=== PATIENT | male | born 1955 | race African-American/Black ===

== ENCOUNTER 2020-07-22 09:42 | Inpatient (IN) | payer MEDICARE, OTHER ==
[~2020-07-22] VITALS: Ht 175.3 cm; Wt 94.8 kg
[2020-07-22] MEDS ORDERED: LEVETIRACETAM 1000MG/100ML 100 ML IV ONE (10:15)
[2020-07-22 10:28] LABS: BASOPHILS % 0.1 % (0.0-2.0); HEMATOCRIT. 36.2 % (42.0-52.0); HEMOGLOBIN. 12.3 g/dL (14.0-18.0); LYMPHOCYTES % 7.5 % (20.0-50.0); MEAN CORPUSCULAR HEMOGLOBIN 31.7 pg (28.0-32.0); MEAN CORPUSCULAR VOLUME 93.3 fL (80.0-94.0); MEAN PLATELET VOLUME 8.6 fl (7.4-10.4); MONOCYTES % 2.6 % (2.0-8.0); NEUTROPHILS % 89.8 % (40.0-76.0); PLATELET 200 x1000/uL (130-400); RED BLOOD CELL COUNT 3.87 mill/uL (4.7-6.1); RED CELL DISTRIBUTION WIDTH 13.8 % (11.6-14.6)
[2020-07-22 10:36] LABS: CHLORIDE 111 mEq/L (98-107)
[2020-07-22 10:42] LABS: ETHANOL BLOOD < 10 mg/dL
[2020-07-22 10:48] LABS: CLARITY URINE CLEAR (CLEAR); COLOR URINE YELLOW (YELLOW); KETONES URINE TRACE (NEGATIVE); LEUKOCYTE ESTERASE URINE NEGATIVE (NEGATIVE); NITRITE URINE NEGATIVE (NEGATIVE); OCCULT BLOOD URINE 1+ (NEGATIVE); PH URINE 6.5 (4.5-8.0); PROTEIN URINE 2+ (NEGATIVE); SPECIFIC GRAVITY URINE 1.015 (1.005-1.030); UROBILINOGEN URINE 0.2 E.U./dL (0.2-1.0)
[2020-07-22 10:59] LABS: *AMPHETAMINES SCREEN URINE NEGATIVE (NEGATIVE); *BARBITURATES SCREEN URINE NEGATIVE (NEGATIVE)
[2020-07-22 11:00] LABS: *BENZODIAZEPINES SCREEN URINE NEGATIVE (NEGATIVE); *COCAINE SCREEN URINE NEGATIVE (NEGATIVE); METHADONE URINE SCREEN NEGATIVE (NEGATIVE); OPIATES URINE SCREEN NEGATIVE (NEGATIVE)
[2020-07-22 11:01] LABS: CANNABINOID URINE SCREEN NEGATIVE (NEGATIVE); PHENCYCLIDINE URINE SCREEN NEGATIVE (NEGATIVE)
[2020-07-22 15:30] VITALS: BP 121/77
[2020-07-22] MEDS ORDERED: GUAIFENESIN 200MG/10ML SUGAR FREE UDC PO PRN (16:00)
[2020-07-22] MEDS ORDERED: NA PHOS,M-B/NA PHOS,DI-BA ENEMA 118ML PR PRN (16:00)
[2020-07-22] MEDS ORDERED: MAGNESIUM/ALUMINUM HYDROXIDE/SIMETHICONE 30ML UDC PO PRN (16:00)
[2020-07-22] MEDS ORDERED: MORPHINE SULFATE 2 MG/ML CPJ (NOT FOR IM USE) IV PRN (16:00)
[2020-07-22] MEDS ORDERED: DIPHENHYDRAMINE 50MG/ML VIAL IV PRN (16:00)
[2020-07-22] MEDS ORDERED: HYDROCODONE/ACETAMINOPHEN 10/325MG TABLET PO PRN (16:00)
[2020-07-22] MEDS ORDERED: DEXTROSE 50% WATER 50ML SYRINGE IV PRN (16:00)
[2020-07-22] MEDS ORDERED: LORAZEPAM 2MG/ML CPJ IV PRN (16:00)
[2020-07-22] MEDS ORDERED: IPRATROPIUM/ALBUTEROL 0.5-3(2.5)MG/3ML NEB NEB PRN (16:00)
[2020-07-22] MEDS ORDERED: ONDANSETRON HCL 4MG/2ML INJ IV PRN (16:00)
[2020-07-22] MEDS ORDERED: CLONIDINE 0.1MG TABLET PO PRN (16:00)
[2020-07-22] MEDS ORDERED: DOCUSATE SODIUM 100MG CAPSULE PO PRN (16:00)
[2020-07-22] MEDS ORDERED: ACETAMINOPHEN 325MG TABLET PO PRN (16:00)
[2020-07-22] MEDS: BLOOD SUGAR DIAGNOSTIC STRIP TEST SCH ×2 (16:45→21:06)
[2020-07-22] MEDS ORDERED: AMLO10TA80 MT (16:54)
[2020-07-22] MEDS ORDERED: ESCI10TA61 MT (16:54)
[2020-07-22] MEDS ORDERED: HALO5TAB PO (16:54)
[2020-07-22] MEDS ORDERED: LAMO200T50 PO (16:54)
[2020-07-22] MEDS ORDERED: LISI-186 MT (16:54)
[2020-07-22] MEDS ORDERED: LEVA0.6320 NEB (16:54)
[2020-07-22] MEDS ORDERED: FAMO20TA8 MT (16:54)
[2020-07-22] MEDS ORDERED: LEVE10006 MT (16:54)
[2020-07-22] MEDS ORDERED: FLUT15.844 BOTHNSTRLS (16:54)
[2020-07-22] MEDS ORDERED: OLAN10TA19 PO (16:54)
[2020-07-22] MEDS ORDERED: IPRA3AMP9 HHN (16:54)
[2020-07-22] MEDS ORDERED: TOPI25TA48 MT (16:54)
[2020-07-22] MEDS: INSULIN LISPRO 100 UNITS/ML SUBCUT SCH ×2 (17:15→21:00)
[2020-07-22] MEDS: ENOXAPARIN 40MG/0.4ML SYR SUBCUT SCH (18:14)
[2020-07-22 20:00] VITALS: BP 125/80
[2020-07-22] MEDS: OLANZAPINE 10MG TABLET PO SCH (20:53)
[2020-07-22] MEDS: LAMOTRIGINE 100MG TABLET PO SCH (20:53)
[2020-07-22] MEDS: LEVETIRACETAM 500MG TABLET PO SCH (20:54)
[2020-07-22] MEDS ORDERED: LEVETIRACETAM 500MG TABLET PO SCH (21:00)
[2020-07-22] MEDS: SODIUM CHLORIDE 0.9% INJ 3ML FLUSH IVF SCH (21:07)
[2020-07-23] VITALS (9 sets, daily range): BP systolic 80–136; BP diastolic 45–80
[2020-07-23 00:27] LABS: CREATINE KINASE MB FRACTION 4.7 ng/mL (0.5-3.6)
[2020-07-23] MEDS: BLOOD SUGAR DIAGNOSTIC STRIP TEST SCH ×4 (06:34→20:37)
[2020-07-23] MEDS: SODIUM CHLORIDE 0.9% INJ 3ML FLUSH IVF SCH ×3 (06:34→22:09)
[2020-07-23] MEDS: INSULIN LISPRO 100 UNITS/ML SUBCUT SCH ×4 (06:35→20:38)
[2020-07-23 07:02] LABS: BASOPHILS % 0.5 % (0.0-2.0); EOSINOPHILS % 0.8 % (0.0-5.0); HEMATOCRIT. 34.9 % (42.0-52.0); HEMOGLOBIN. 11.8 g/dL (14.0-18.0); LYMPHOCYTES % 29.4 % (20.0-50.0); MEAN CORPUSCULAR HEMOGLOBIN 31.5 pg (28.0-32.0); MEAN PLATELET VOLUME 8.6 fl (7.4-10.4); MONOCYTES % 7.4 % (2.0-8.0); NEUTROPHILS % 61.9 % (40.0-76.0); PLATELET 198 x1000/uL (130-400); RED BLOOD CELL COUNT 3.75 mill/uL (4.7-6.1)
[2020-07-23 07:13] LABS: CHLORIDE 109 mEq/L (98-107)
[2020-07-23 07:28] LABS: LDL CHOLESTEROL 105 mg/dL (5-100); T4 FREE 0.91 ng/dL (0.76-1.46)
[2020-07-23 07:29] LABS: CREATINE KINASE MB FRACTION 4.2 ng/mL (0.5-3.6)
[2020-07-23 07:30] LABS: HDL CHOLESTEROL 60 mg/dL (40-59)
[2020-07-23 07:43] LABS: CREATINE KINASE 1523 IU/L (39-308)
[2020-07-23] MEDS: LEVETIRACETAM 500MG TABLET PO SCH ×2 (09:13→20:40)
[2020-07-23] MEDS: LAMOTRIGINE 100MG TABLET PO SCH ×2 (09:13→20:40)
[2020-07-23] MEDS: OLANZAPINE 10MG TABLET PO SCH ×2 (09:13→17:29)
[2020-07-23] MEDS ORDERED: POTASSIUM CHLORIDE 20MEQ TABLET SR PO SCH (11:00)
[2020-07-23] MEDS ORDERED: SODIUM CHLORIDE 0.9% 500 ML IV ONE (11:45)
[2020-07-23] MEDS: ENOXAPARIN 40MG/0.4ML SYR SUBCUT SCH (17:29)
[2020-07-24] VITALS: BP 112/70
[2020-07-24 04:00] VITALS: BP 116/85
[2020-07-24] MEDS: SODIUM CHLORIDE 0.9% INJ 3ML FLUSH IVF SCH (05:22)
[2020-07-24] MEDS: BLOOD SUGAR DIAGNOSTIC STRIP TEST SCH (06:59)
[2020-07-24] MEDS: INSULIN LISPRO 100 UNITS/ML SUBCUT SCH (07:00)
[2020-07-24 08:00] VITALS: BP 126/88
[2020-07-24] MEDS: LEVETIRACETAM 500MG TABLET PO SCH (08:47)
[2020-07-24] MEDS: OLANZAPINE 10MG TABLET PO SCH (08:47)
[2020-07-24] MEDS: LAMOTRIGINE 100MG TABLET PO SCH (08:47)
[2020-07-24 10:30] VITALS: BP 126/88
== END 2020-07-24 12:00 | DRG 53 ==
LOC: ER 09:51 → 5WST 13:15 → ENRESERV 14:08
PROVIDERS: ADMIT Internal Medicine; ATTEND Internal Medicine
DX: G40.919 Epilepsy, unspecified, intractable, without status epilepticus (principal); E11.9 Type 2 diabetes mellitus without complications; E78.5 Hyperlipidemia, unspecified; F03.90 Unspecified dementia, unspecified severity, without behavioral disturbance, psychotic disturbance, mood disturbance, and anxiety; F20.9 Schizophrenia, unspecified; F31.9 Bipolar disorder, unspecified; I11.0 Hypertensive heart disease with heart failure; I25.10 Atherosclerotic heart disease of native coronary artery without angina pectoris; I48.91 Unspecified atrial fibrillation; I50.9 Heart failure, unspecified; J44.9 Chronic obstructive pulmonary disease, unspecified; M81.0 Age-related osteoporosis without current pathological fracture; F41.9 Anxiety disorder, unspecified; M19.90 Unspecified osteoarthritis, unspecified site; Z79.899 Other long term (current) drug therapy; Z86.73 Personal history of transient ischemic attack (TIA), and cerebral infarction without residual deficits; S00.83XA Contusion of other part of head, initial encounter
CPT/HCPCS: 36415; 71045; 80053; 80061; 80305; 80320; 81003; 82550; 82553; 82962; 84439; 84443; 84484; 85025; 93005; 99285; J1650; J1953; G0480

== ENCOUNTER 2022-08-22 18:00 | Emergency (ER) | payer MEDICARE, MEDICAID ==
[~2022-08-22] VITALS: Ht 177.8 cm; Wt 79.0 kg
[~2022-08-22 18:00] MED LIST: AMLO10TA80 MT; ESCI-7 MT; FAMO20TA8 MT; FLUT15.844 BOTHNSTRLS; HALO5TAB PO; IPRA3AMP9 HHN; LAMO200T50 PO; LEVA0.6320 NEB; LEVE10006 MT; LISI-186 MT; OLAN10TA72 PO; TOPI25TA48 MT
[2022-08-22] MEDS ORDERED: IBUPROFEN 400MG TABLET PO ONE (20:30)
[2022-08-22] MEDS ORDERED: ACETAMINOPHEN 325MG TABLET PO ONE (20:30)
[2022-08-23 14:02] VITALS: BP 153/93
== END 2022-08-23 14:01 ==
LOC: ER 18:00
DX: R51.9 Headache, unspecified (principal); R00.1 Bradycardia, unspecified; I48.91 Unspecified atrial fibrillation; F41.9 Anxiety disorder, unspecified; M19.90 Unspecified osteoarthritis, unspecified site; J45.909 Unspecified asthma, uncomplicated; J44.9 Chronic obstructive pulmonary disease, unspecified; I25.10 Atherosclerotic heart disease of native coronary artery without angina pectoris; I11.0 Hypertensive heart disease with heart failure; I50.9 Heart failure, unspecified; R13.10 Dysphagia, unspecified; F32.9 Major depressive disorder, single episode, unspecified; E11.9 Type 2 diabetes mellitus without complications; F20.9 Schizophrenia, unspecified; Z86.73 Personal history of transient ischemic attack (TIA), and cerebral infarction without residual deficits; Z86.718 Personal history of other venous thrombosis and embolism
CPT/HCPCS: 93005; 99285

== ENCOUNTER 2023-05-17 16:22 | Emergency (ER) | payer MEDICARE, MEDICAID ==
[~2023-05-17] VITALS: Ht 180.3 cm; Wt 82.0 kg
[2023-05-17 16:26] VITALS: BP 125/76; PULSE 57; RESP 14; TEMP 97.9; O2SAT 96
[2023-05-17] MEDS ORDERED: NAPR-1176 MT (17:33)
== END 2023-05-18 12:57 | disposition home or self-care (01) ==
LOC: ER 16:22
DX: S80.01XA Contusion of right knee, initial encounter (principal); I11.0 Hypertensive heart disease with heart failure; I50.9 Heart failure, unspecified; J44.9 Chronic obstructive pulmonary disease, unspecified; I48.91 Unspecified atrial fibrillation; F41.9 Anxiety disorder, unspecified; E11.9 Type 2 diabetes mellitus without complications; F20.9 Schizophrenia, unspecified; Z86.73 Personal history of transient ischemic attack (TIA), and cerebral infarction without residual deficits; W07.XXXA Fall from chair, initial encounter; Y93.89 Activity, other specified; Y92.89 Other specified places as the place of occurrence of the external cause; Y99.8 Other external cause status
CPT/HCPCS: 99283

== ENCOUNTER 2023-06-07 13:02 | Emergency (ER) | payer MEDICARE, MEDICAID ==
[~2023-06-07] VITALS: Ht 177.8 cm; Wt 80.0 kg
[~2023-06-07 13:02] MED LIST changes: +NAPR-1176 MT
[2023-06-07 13:09] VITALS: O2SAT 97
[2023-06-07] MEDS ORDERED: NAPROXEN 375MG TABLET PO ONE (13:45)
[2023-06-07] MEDS ORDERED: TOPUD MT (14:40)
[2023-06-07 16:27] VITALS: BP 147/78; PULSE 54; RESP 16; TEMP 97.5
== END 2023-06-07 16:28 | disposition home or self-care (01) ==
LOC: ER 13:02
DX: M17.11 Unilateral primary osteoarthritis, right knee (principal); I11.0 Hypertensive heart disease with heart failure; I50.9 Heart failure, unspecified; J44.1 Chronic obstructive pulmonary disease with (acute) exacerbation; E11.9 Type 2 diabetes mellitus without complications; J45.909 Unspecified asthma, uncomplicated; Z79.899 Other long term (current) drug therapy; Z86.73 Personal history of transient ischemic attack (TIA), and cerebral infarction without residual deficits; Z86.59 Personal history of other mental and behavioral disorders
CPT/HCPCS: 73562; 99283

== ENCOUNTER 2024-11-03 01:59 | Inpatient (IN) | payer MEDICARE, MEDICAID ==
[~2024-11-03] VITALS: Ht 180.3 cm; Wt 87.5 kg
[~2024-11-03 01:59] MED LIST changes: +ABIL5 PO; +ARIP30TA59 PO; +ASPI-1406 PO; +COR3 PO; +DIVA-75 PO; +KEPP500 PO; +LAM1 PO; -LEVE10006 MT; +LOSA25TA26 PO; +TOPUD MT
[2024-11-03] MEDS: LEVETIRACETAM 1000MG PREMIX 100 ML IV ONE (04:04)
[2024-11-03 04:13] LABS: BASOPHILS % 0.4 % (0.0-2.0); EOSINOPHILS % 0.6 % (0.0-5.0); HEMATOCRIT. 41.3 % (42.0-52.0); HEMOGLOBIN. 13.8 g/dL (14.0-18.0); LYMPHOCYTES % 21.1 % (20.0-50.0); MEAN CORPUSCULAR HEMOGLOBIN 32.4 pg (28.0-32.0); MEAN CORPUSCULAR HGB CONC 33.4 g/dL (31.0-37.0); MEAN CORPUSCULAR VOLUME 97.2 fL (80.0-94.0); MEAN PLATELET VOLUME 9.2 fl (7.4-10.4); MONOCYTES % 8.7 % (2.0-8.0); NEUTROPHILS % 69.2 % (40.0-76.0); PLATELET 199 x1000/uL (130-400); RED BLOOD CELL COUNT 4.25 mill/uL (4.7-6.1); RED CELL DISTRIBUTION WIDTH 13.6 % (11.6-14.6); WHITE BLOOD COUNT 6.5 x1000/uL (4.5-11.0)
[2024-11-03 04:20] LABS: CHLORIDE 109 mEq/L (98-107); POTASSIUM 4.6 mEq/L (3.5-5.1); SODIUM 142 mEq/L (136-145)
[2024-11-03 04:21] LABS: CARBON DIOXIDE 27 mEq/L (21-32)
[2024-11-03 04:22] LABS: CALCIUM 9.4 mg/dL (8.7-10.4)
[2024-11-03 04:26] LABS: CREATININE 1.1 mg/dL (0.6-1.3); GLUCOSE 106 mg/dL (70-105)
[2024-11-03 04:27] LABS: UREA NITROGEN BLOOD 14 mg/dL (9-23)
[2024-11-03 04:38] LABS: ETHANOL BLOOD < 10 mg/dL (<10)
[2024-11-03 06:10] LABS: *AMPHETAMINES SCREEN URINE NEGATIVE (NEGATIVE); *BARBITURATES SCREEN URINE NEGATIVE (NEGATIVE); *BENZODIAZEPINES SCREEN URINE NEGATIVE (NEGATIVE); *COCAINE SCREEN URINE NEGATIVE (NEGATIVE); CANNABINOID URINE SCREEN NEGATIVE (NEGATIVE); ECSTASY MDMA SCREEN URINE NEGATIVE (NEGATIVE); METHADONE URINE SCREEN NEGATIVE (NEGATIVE); OPIATES URINE SCREEN NEGATIVE (NEGATIVE); PHENCYCLIDINE URINE SCREEN NEGATIVE (NEGATIVE)
[2024-11-03 06:56] LABS: CLARITY URINE CLEAR (CLEAR); COLOR URINE YELLOW (YELLOW); GLUCOSE URINE NEGATIVE (NEGATIVE); KETONES URINE NEGATIVE (NEGATIVE); LEUKOCYTE ESTERASE URINE NEGATIVE (NEGATIVE); NITRITE URINE NEGATIVE (NEGATIVE); OCCULT BLOOD URINE NEGATIVE (NEGATIVE); PROTEIN URINE NEGATIVE (NEGATIVE); SPECIFIC GRAVITY URINE 1.013 (1.005-1.030); UROBILINOGEN URINE 0.2 E.U./dL (0.2-1.0)
[2024-11-03] MEDS ORDERED: IPRATROPIUM/ALBUTEROL 0.5-3(2.5)MG/3ML NEB HHN PRN (11:30)
[2024-11-03] MEDS ORDERED: ACETAMINOPHEN 325MG TABLET PO PRN ×2 (11:30)
[2024-11-03] MEDS ORDERED: DOCUSATE SODIUM 100MG CAPSULE PO PRN (11:30)
[2024-11-03] MEDS ORDERED: GUAIFENESIN 200MG/10ML SUGAR FREE UDC PO PRN (11:30)
[2024-11-03] MEDS ORDERED: ONDANSETRON HCL 4MG/2ML INJ IV PRN (11:30)
[2024-11-03] MEDS: DIVALPROEX SODIUM 500MG DR TABLET PO SCH (12:29)
[2024-11-03] MEDS: LOSARTAN 25 MG TABLET PO SCH (12:29)
[2024-11-03] MEDS: AMLODIPINE 5MG TABLET PO NR (12:29)
[2024-11-03] MEDS: ARIPIPRAZOLE 5MG TABLET PO SCH (12:29)
[2024-11-03] MEDS ORDERED: LORAZEPAM 2MG/ML INJ IV PRN (16:15)
[2024-11-03 17:11] LABS: VALPROIC ACID 53.1 ug/mL (50-100)
[2024-11-03 17:12] LABS: PHOSPHORUS 1.9 mg/dL (2.5-4.9)
[2024-11-03] MEDS: CARVEDILOL 3.125 MG TABLET PO SCH (21:00)
[2024-11-03] MEDS: LEVETIRACETAM 500MG TABLET PO SCH (22:53)
[2024-11-03] MEDS: LAMOTRIGINE 100MG TABLET PO SCH (22:55)
[2024-11-04 08:00] VITALS: BP 147/111; PULSE 67; RESP 20; TEMP 36.83628; O2SAT 97
[2024-11-04 12:00] VITALS: BP 155/103; PULSE 64; RESP 15; TEMP 36.83628; O2SAT 95
[2024-11-04] MEDS: ASPIRIN 81MG EC TABLET PO SCH (12:00)
[2024-11-04] MEDS: AMLODIPINE 10MG TABLET PO SCH (12:06)
[2024-11-04] MEDS: POTASSIUM PHOSPHATE 15 MMOL in DEXT 5% WATER 245 ML IV NR (12:36)
[2024-11-04] MEDS: CLONIDINE 0.1MG TABLET PO PRN (14:28)
[2024-11-04 15:58] VITALS: BP 154/93; PULSE 74; RESP 19; TEMP 36.8628
[2024-11-04 16:00] VITALS: BP 154/93; TEMP 36.83628
[2024-11-04 18:32] LABS: BASOPHILS % 0.5 % (0.0-2.0); EOSINOPHILS % 1.1 % (0.0-5.0); HEMATOCRIT. 47.3 % (42.0-52.0); HEMOGLOBIN. 15.7 g/dL (14.0-18.0); LYMPHOCYTES % 33.3 % (20.0-50.0); MEAN CORPUSCULAR HEMOGLOBIN 32.6 pg (28.0-32.0); MEAN CORPUSCULAR HGB CONC 33.3 g/dL (31.0-37.0); MEAN CORPUSCULAR VOLUME 97.9 fL (80.0-94.0); MEAN PLATELET VOLUME 9.7 fl (7.4-10.4); MONOCYTES % 9.1 % (2.0-8.0); PLATELET 209 x1000/uL (130-400); RED BLOOD CELL COUNT 4.83 mill/uL (4.7-6.1); RED CELL DISTRIBUTION WIDTH 13.5 % (11.6-14.6); WHITE BLOOD COUNT 10.6 x1000/uL (4.5-11.0)
[2024-11-04 18:44] LABS: CARBON DIOXIDE 23 mEq/L (21-32); CHLORIDE 106 mEq/L (98-107); POTASSIUM 4.9 mEq/L (3.5-5.1); SODIUM 138 mEq/L (136-145)
[2024-11-04 18:45] LABS: CALCIUM 10.3 mg/dL (8.7-10.4)
[2024-11-04 18:49] LABS: GLUCOSE 101 mg/dL (70-105)
[2024-11-04 18:50] LABS: UREA NITROGEN BLOOD 17 mg/dL (9-23)
[2024-11-04 18:51] LABS: CREATINE KINASE 555 IU/L (46-171)
[2024-11-04 18:53] LABS: T4 FREE 1.33 ng/dL (0.89-1.76); THYROID STIMULATING HORMONE 2.53 uIU/mL (0.55-4.78)
[2024-11-04 20:00] VITALS: BP 152/112; PULSE 95; RESP 20; TEMP 36.9474; O2SAT 100
[2024-11-05] VITALS: BP_SYST 147; BP_DIAS 9; BP_DIAS 92; PULSE 98; RESP 20; TEMP 37.05852; O2SAT 100
[2024-11-05 04:00] VITALS: BP 106/59; PULSE 98; RESP 20; TEMP 37.05852; O2SAT 100
[2024-11-05 08:00] VITALS: BP 120/95; PULSE 87; RESP 24; TEMP 36.78072; O2SAT 99
[2024-11-05 12:00] VITALS: BP 123/87; PULSE 64; RESP 20; TEMP 36.6696; O2SAT 97
[2024-11-05 16:00] VITALS: BP 131/75; PULSE 64; RESP 15; TEMP 36.6696; O2SAT 94
[2024-11-05 20:00] VITALS: BP 135/117; PULSE 79; RESP 15; TEMP 36.72516; O2SAT 97
[2024-11-06] VITALS (7 sets, daily range): BP systolic 106–122; BP diastolic 70–94; PULSE 63–80; RESP 15–20; TEMP 36.22512–37.00296; O2SAT 93–98
[2024-11-07] VITALS: BP 100/85; PULSE 63; RESP 18; TEMP 36.44736; O2SAT 94
[2024-11-07 04:00] VITALS: BP 108/50; PULSE 61; RESP 18; TEMP 36.61404; O2SAT 97
[2024-11-07 08:00] VITALS: BP 90/62; PULSE 66; RESP 16; TEMP 36.89184; O2SAT 95
[2024-11-07 11:52] VITALS: BP 117/89; PULSE 64; TEMP 98.4; O2SAT 95
[2024-11-07 12:00] VITALS: BP 107/78; PULSE 60; RESP 14; TEMP 36.89184; O2SAT 95
[2024-11-07] MEDS ORDERED: LAM1 PO (12:12)
[2024-11-07] MEDS ORDERED: AMLO10TA80 PO (12:12)
[2024-11-07] MEDS ORDERED: LOSA25TA26 PO (12:12)
[2024-11-07] MEDS: INFLUENZA VACCINE 05/PF 0.5 ML SYRINGE IM ONE (15:52)
[2024-11-07] MEDS: PNEUMOCOCCAL 20-VAL CONJ-DIP CRM 0.5ML IM ONE (15:54)
[2024-11-07 16:00] VITALS: BP 113/87; PULSE 69; RESP 17; TEMP 36.9474; TEMP 36.94740; O2SAT 97
[2024-11-08 09:06] LABS: LEVETIRACETAM / KEPPRA 7.1 ug/mL (10.0-40.0)
[2024-11-09 13:06] LABS: LAMOTIGINE (LAMICTAL) 6.5 ug/mL (2.0-20.0)
== END 2024-11-07 18:20 | DRG 53 ==
LOC: ER 01:59 → EDBEDREQ 07:51 → EDBEDREQTM 08:11 → EDBEDREQ 08:11 → 3WST 11-04 08:26
PROVIDERS: ADMIT Internal Medicine; ATTEND Internal Medicine
DX: G40.909 Epilepsy, unspecified, not intractable, without status epilepticus (principal); F03.90 Unspecified dementia, unspecified severity, without behavioral disturbance, psychotic disturbance, mood disturbance, and anxiety; I50.9 Heart failure, unspecified; D75.89 Other specified diseases of blood and blood-forming organs; E11.9 Type 2 diabetes mellitus without complications; I11.0 Hypertensive heart disease with heart failure; F20.9 Schizophrenia, unspecified; I25.10 Atherosclerotic heart disease of native coronary artery without angina pectoris; I48.91 Unspecified atrial fibrillation; F32.A Depression, unspecified; M13.88 Other specified arthritis, other site; J44.89 Other specified chronic obstructive pulmonary disease; F41.9 Anxiety disorder, unspecified; Z82.0 Family history of epilepsy and other diseases of the nervous system; Z86.73 Personal history of transient ischemic attack (TIA), and cerebral infarction without residual deficits; Z99.3 Dependence on wheelchair
CPT/HCPCS: 36415; 71045; 80048; 80165; 80305; 80320; 81003; 82542; 82550; 82962; 83735; 84100; 84439; 84443; 85025; 90686; 90732; 97166; 99285; A4606; J1953; J3490; J7060; G0480